=== PATIENT | male | born 1945 | race Caucasian/White ===

== ENCOUNTER 2017-10-13 22:38 | Inpatient (IN) | payer MEDICARE, OTHER ==
[2017-10-13] MEDS ORDERED: NS 0.9% 1000 ML* 2,000 ML IV ONE (22:58)
[2017-10-13] MEDS: Enoxaparin(*) 80 MG/0.8 ML SYR SUBCUT ONE (23:10)
--- NOTE | 2017-10-13 23:19 | ED ---
HPI Chest Pain - HPI Summary HPI Summary: This patient is a 72 year old M presenting to [facility] accompanied by his with a chief complaint of CP since 1330 today. PMHx exertional angina dx 2005; 2 90% lesions in the right side IDd by a heart catheterization. SHx 2x stents. That was the only other time of similar sx. Also identified was a 30% lesion of the left LND. He notes that 6 years ago he felt sx of burning central CP alleviated by rest. He endorses regular moderate exercise and is usually asymptomatic. Today, towards the end of usual activity, he notes he felt sx of lingering CP. He denies diaphoresis, pain radiation ,and N/V. He endorses the chest pain lasted 20 or 25 minutes, and intensely for 4. Took NTG and pain gone after 10 minutes. At 1830 pt had blood drawn and EKG, 0.15 troponin, slightly abnormal EKG. Pt denies any further sx. PMHx HLD. 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 PMHx kidney stones. He endorses that normally his creatinine is 1.2-1.5. Pt notes that 6 years ago he experienced gradually increasing residuals, so he has been catheterizing himself 2x a day. Catheterized at 2200, 500 ccs normal urine. - History of Current Complaint Chief Complaint: EDChestPainROMI Time Seen by Provider: 10/13/17 23:00 Hx Obtained From: Patient Onset/Duration: Started Hours Ago, Resolved Timing: Constant, Lasting Minutes Initial Severity: Moderate Current Severity: None Pain Intensity: 0 Pain Scale Used: 0-10 Numeric Chest Pain Location: Mid Sternal Chest Pain Radiates: No Character: Burning, Tightness Aggravating Factor(s): Exertion Alleviating Factor(s): NTG 123 Associated Signs and Symptoms: Positive: Chest Pain. Negative: Fever, Diaphoresis, Nausea, Vomiting Related History: Similar Episode/Dx as: - dx exertional angina - Allergy/Home Medications Allergies/Adverse Reactions: Allergies Allergy/AdvReac Type Severity Reaction Status Date / Time ciprofloxacin Allergy >3 days, Verified 09/02/17 12:45 tendon pain PMH/Surg Hx/FS Hx/Imm Hx Endocrine/Hematology History: Reports: Hx Anticoagulant Therapy - ASA, Hx Thyroid Disease - THYROIDITIS Denies: Hx Diabetes Cardiovascular History: Reports: Hx Angina - exertional, Hx Hypercholesterolemia Denies: Hx Hypertension, Hx Pacemaker/ICD Respiratory History: Denies: Hx Asthma, Hx Chronic Obstructive Pulmonary Disease (COPD) GI History: Denies: Other GI Disorders History: Reports: Hx Kidney Stones, Hx Renal Disease - NO LEFT KIDNEY Denies: Hx Dialysis Sensory History: Denies: Hx Legally Blind, Hx Deafness, Hx Hearing Aid Opthamlomology History: Denies: Hx Legally Blind EENT History: Denies: Hx Deafness Neurological History: Denies: Hx Dementia, Hx Seizures Psychiatric History: Denies: Hx Panic Disorder, Hx Substance Abuse - Surgical History Surgery Procedure, Year, and Place: LT NEPHECTOMY CHILD, STENT Infectious Disease History: No Infectious Disease History: Denies: Hx Hepatitis, Hx Human Immunodeficiency Virus (HIV), Traveled Outside the [place] in Last 30 Days - Family History Known Family History: Positive: Cardiac Disease - father, age 49, aortic stenosis mother, Other - brother prostate cancer - Social History Occupation: Retired Lives: With Family Alcohol Use: None Substance Use Type: Reports: None Smoking Status (MU): Never Smoked Tobacco Review of Systems Negative: Fever, Skin Diaphoresis Positive: Chest Pain. Negative: Other - pain radiation Negative: Vomiting, Nausea Positive: other - gradually increasing residuals, self-catheters 2x a day All Other Systems Reviewed And Are Negative: Yes Physical Exam - Summary Physical Exam Summary: Appearance: Well-appearing, Well-nourished, lying in bed comfortably Skin: Warm, dry, no obvious rash Eyes: sclera anicteric, no conjunctival pallor ENT: mucous membranes moist, pharynx appears normal Neck: Supple, non-tender Respiratory: Clear to auscultation, no signs of respiratory distress Cardiovascular: Normal S1, S2. No murmurs. Normal distal pulses in tibial and radial bilaterally. Abdomen: Soft, non-tender, normal active bowel sounds present Musculoskeletal: Normal, Strength/ROM Intact Neurological: A&Ox3, awake and alert, mentation is normal, speech is fluent and appropriate Psychiatric: affect is normal, does not appear anxious or depressed Triage Information Reviewed: Yes Vital Signs On Initial Exam: Initial Vitals Temp Pulse Resp BP Pulse Ox 99.5 F 67 17 157/84 98 10/13/17 22:48 10/13/17 22:48 10/13/17 22:48 10/13/17 22:48 10/13/17 22:48 Vital Signs Reviewed: Yes Diagnostics - Vital Signs Vital Signs Temp Pulse Resp BP Pulse Ox 10/13/17 22:50 67 21 98 10/13/17 22:48 99.5 F 68 19 157/84 99 - Laboratory Result Diagrams: 10/13/17 23:36 10/13/17 23:36 Lab Statement: Any lab studies that have been ordered have been reviewed, and results considered in the medical decision making process. - EKG 2244 Cardiac Rate: NL - 65 EKG Rhythm: Sinus Rhythm ST Segment: Normal Ectopy: None EKG Comparison: No Significant Change - nl EKG Chest Pain Course/Dx - Diagnoses Provider Diagnoses: Unstable angina - Provider Notifications Discussed Care Of Patient With: Diamond Loco Instructed by Provider To: Will See In ED Discharge - Sign-Out/Discharge Documenting (check all that apply): Patient Departure - admit - Discharge Plan Condition: Stable Disposition: ADMITTED TO [facility] - Billing Disposition and Condition Condition: STABLE Disposition: Admitted to [facility] - Attestation Statements Document Initiated by Scribe: Yes Documenting Scribe: Alfred Waldrop Provider For Whom Anton is Documenting (Include Credential): Dr. Hunter Caraballo MD Scribe Attestation: Alfred Mckinney scribed for Dr. Hunter Caraballo MD on 10/14/17 at 0150. Scribe Documentation Reviewed: Yes Provider Attestation: The documentation as recorded by the Alfred munoz accurately reflects the service I personally performed and the decisions made by me, Dr. Hunter Caraballo MD
[2017-10-13] MEDS ORDERED: Ondansetron INJ* 2 MG/ML VIAL IV PRN (23:28)
[2017-10-13] MEDS ORDERED: Acetaminophen TAB* 325 MG PO PRN (23:28)
[2017-10-13] MEDS ORDERED: Al Hydrox/Mg Hydrox/Simet LIQ* 30 ML UDC PO PRN (23:28)
[2017-10-13] MEDS ORDERED: Levothyroxine TAB* 50 MCG TAB PO SCH (23:45)
[2017-10-14] LABS: ABS Basophils 0 10^3/ul (0-0.2); ABS Eosinophils 0.1 10^3/ul (0-0.6); ABS Lymphocytes 1.2 10^3/ul (1.0-4.8); ABS Monocytes 0.4 10^3/ul (0-0.8); ABS Nucleated RBC 0 10^3/ul; Hematocrit 37 % (42-52); Lymphocyte % 26.2 % (25-47); Mean Corpuscular HGB Conc 35 g/dl (31-36); Mean Corpuscular Hemoglobin 31 pg (27-31); Mean Corpuscular Volume 89 fL (80-94); Mean Platelet Volume 7.7 um3 (7.4-10.4); Nucleated Red Blood Cells % 0.1; Platelet Count 119 10^3/ul (150-450); Red Blood Count 4.19 10^6/ul (4.00-5.40); Red Cell Distribution Width 13 % (10.5-15); White Blood Count 4.7 10^3/ul (3.5-10.8)
[2017-10-14 00:07] LABS: EGFR Non-African American 55.9 (>60)
[2017-10-14] MEDS: Enoxaparin(*) 80 MG/0.8 ML SYR SUBCUT ONE ×2 (00:09→00:12)
[2017-10-14] MEDS: NS 0.9% 1000 ML* 1,000 ML IV SCH ×2 (00:28→11:17)
--- NOTE | 2017-10-14 02:37 | HP ---
CC: Shahriar Rivera MD * HISTORY AND PHYSICAL: DATE OF ADMISSION: 10/13/17 TIME OF EVALUATION: 2300. PRIMARY CARE PHYSICIAN: Shahriar Rivera MD CHIEF COMPLAINT: Chest pain. HISTORY OF PRESENT ILLNESS: This is a 72-year-old male with a past medical history of CAD and stable angina who presented to the emergency room with persistent chest pain. 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 No other intervention. He states that this afternoon after having intercourse, his angina started and it lasted for about 20 minutes which is much longer than it has ever lasted in the past. He found some old nitro spray and took 2 sprays and it eventually subsided. He told his , Sana, who is also an database modeler and she did an EKG which looks relatively stable. He really wanted to go to a [facility] where he was doing a presentation, so he went there and then they checked her troponin which was 0.15. They called the machine maintenance servicer who recommended him going to the emergency room for further evaluation. The patient is currently chest pain free. When he had his chest pain earlier, it was nonradiating. He had no associated shortness of breath, nausea, diaphoresis. He has had a URI with no fever, no shortness of breath over the past week and no cough that has persisted. He states his last stress test was in 2012 that showed a small old inferior HI. He states that he is relatively active doing the 7-minute workout. He mowed the lawn. He walked several miles without any symptoms. He just had his annual physical last week with no issues. He has lost 5 pounds, but he contributes it to being retired. He has chronic ankle swelling. No recent changes in his medications. Otherwise, review of systems is negative. In the emergency room, the patient had labs, imaging, and was referred to the hospitalist service for further evaluation. PAST MEDICAL HISTORY: 1. History of coronary artery disease status post PCI of the right coronary artery, drug-eluting stents x2 in 2004 at [facility]. He is followed by Dr. Ford here. 2. History of stable angina. 3. History of nephrolithiasis status post lithotripsy followed by Dr. Manley. 4. History of a lacunar TIA in 2004. 5. Gilbert syndrome. 6. History of 2 adenomas found on colonoscopy in 2012. 7. History of right basal cell carcinoma of the right neck status post excision. 8. BPH. 9. History of subacute thyroiditis. 10. History of neurogenic bladder, self-cath b.i.d. 11. History of congenital double kidney status post nephrectomy. 12. Constipation. 13. Hyperlipidemia. MEDICATIONS: 1. Proscar 5 mg p.o. daily. 2. Lipitor 20 mg daily. 3. Aspirin 81 mg p.o. b.i.d. 4. MiraLAX half a cap p.o. b.i.d. 5. Synthroid 50 mcg every other day, 75 mcg every other day. ALLERGIES: CIPROFLOXACIN, tendon pain. 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 He lives with his , Sana, who is still a practising database modeler. No history of smoking, alcohol, or illicit drug use. He has been for 41 years. His is his healthcare proxy. He is full code. He has also grown children. REVIEW OF SYSTEMS: A 14-point review of systems as mentioned in the HPI, otherwise negative. In addition, the patient does have issues with constipation and low back pain. FAMILY HISTORY: Father had an HI at age 49, at age 71, also had a coronary artery bypass graft. His mother at age 87 coronary artery disease. His sister is alive, just recently had a CABG and aortic valve replacement at age 68. His other brother and 2 sisters are alive and healthy. PHYSICAL EXAMINATION GENERAL: In no acute distress. Resting comfortably, with his at the bedside. VITAL SIGNS: T-max 98.5, pulse rate 61, respiratory rate 19, oxygen saturation 99% on room air, and blood pressure 139/77. HEENT: Head: Normocephalic. Pupils are equal and reactive. Anicteric. Oropharynx: Mucous membranes are moist. NECK: Supple. No lymphadenopathy. RESPIRATORY: Clear to auscultation. No wheezes, rhonchi or rales. CARDIAC: Regular rate and rhythm. Soft systolic murmur, most pronounced at the left sternal base. No carotid bruits. ABDOMEN: Soft, nontender, nondistended. EXTREMITIES: No clubbing, cyanosis or edema. +2 DPs. NEUROLOGICAL: Alert and oriented x3. No gross focal neurologic deficits. LABORATORY DATA: Still pending. RADIOGRAPHIC DATA: EKG shows ST changes when compared to his EKG from earlier this afternoon taken by Dr. Sana Duff in leads V2 and V1. Chest x-ray wet read unremarkable. 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 1. Chest pain. Assessment: The patient meets criteria for unstable angina versus a non-ST elevated myocardial infarction. He is currently chest pain free. He does have some nonspecific ST changes. Cardiology has been notified. Plan: We will follow up on his blood work depending on his renal function whether to put him on Lovenox or heparin drip. We will keep him n.p.o. after midnight with IV fluids. He is hesitant to take a beta-bryan. He is concerned that it will drop his pulse and his blood pressure and get more fluids. We will start him on a low dose metoprolol 12.5 mg at 9 a.m. in the morning with parameters set. Continue him on aspirin 81 mg p.o. b.i.d. Continue atorvastatin 20 mg daily. We will check a lipid panel in the morning. We will trend his troponins as well. Follow up on his pending troponin and follow up with Cardiology's recommendations. CHRONIC MEDICAL PROBLEMS: 1. BPH and neurogenic bladder. Continue his Proscar 5 mg p.o. daily. We will order a bladder scan q.8 hours and have us notify if greater than 700. The patient to self-cath b.i.d. and as needed. 2. Hypothyroidism. Continue his Synthroid 50 and 75 mcg alternating. 3. Constipation. Continue with MiraLAX. 4. FEN. The patient will be n.p.o. after midnight with gentle IV fluids. 5. DVT prophylaxis: The patient will be anticoagulated. The score is moderate risk. 6. Code status: Full code. TIME SPENT: Greater than 60 minutes were spent doing the history and physical, greater than half time was spent in direct patient contact. [id number]/[facility] #: [id number] [facility]
--- NOTE | 2017-10-14 05:45 | PN ---
Progress Note - Progress Note Date of Service: 10/14/17 Note: Initial plan was to start metoprolol 12.5 mg this am however HR has been in low 50's overnight. Will discontinue it.
[2017-10-14] MEDS ORDERED: Levothyroxine TAB* 50 MCG TAB PO SCH (06:00)
[2017-10-14 07:17] LABS: INR 1.01 (0.77-1.02)
[2017-10-14 07:23] LABS: EGFR Non-African American 57.5 (>60)
--- NOTE | 2017-10-14 07:37 | RAD ---
INDICATION: Angina COMPARISON: None. TECHNIQUE: Single AP portable view of the chest was obtained. FINDINGS: Image quality is compromised due to the relative inferiority of a portable chest x-ray. The heart and mediastinum exhibit normal size and contour. Overlying the right upper lung and the peripheral aspect of the right lower lung are tiny densities not seen on the contralateral side. Otherwise the lungs are grossly clear. There is no evidence of a large pleural effusion. Visualized bones are normal for the patient's age. IMPRESSION: Scattered punctate densities in the right upper and lower lateral lung are nonspecific but could be small infiltrates, for example atypical pneumonia.
--- NOTE | 2017-10-14 07:47 | PN ---
Subjective - Subjective Reason for Note: Progress Note History: I reviewed Keegan Beasley's presentation with the patient, with Sana Beasley yesterday evening and with Dr. Diamond Loco's admitting history and physical. I saw him as an outpatient for a physical examination 10/08/2017. He has a history of CAD with chronic stable angina. He has a history of a prior RCA stent. He developed chest pain following exertion and he had a subtle change in V2 of his EKG and an increase of his troponin I to 0.15. The chest pain didn 't recur - he went to a picnic after the episode. He has been pain-free overnight - only 2 hours of sleep. He had 1,000 mls on self catherization - likely due to drinking water+++. This morning he is feeling well. He has a slightly hoarse voice from a URI. He has had no light- headedness, chest pain/pressure, dyspnea or palpitations. Active Problems: Active Problems Elevated troponin I level (Acute) R74.8 URI (upper respiratory infection) (Acute) J06.9 Unstable angina pectoris due to coronary arteriosclerosis (Acute) I25.110 History of TIA (transient ischemic attack) (Chronic) Z86.73 Hypercholesterolemia (Chronic) E78.00 Nephrolithiasis (Chronic) N20.0 Neurogenic bladder (Chronic) N31.9 Self-catheterizes urinary bladder (Chronic) Z78.9 Stage 2 chronic kidney disease (Chronic) N18.2 Current Medications: Current Medications Acetaminophen (Tylenol Tab*) 650 mg PO Q4H PRN PRN Reason: FEVER/PAIN Al Hydrox/Mg Hydrox/Simethicone (Maalox Plus*) 30 ml PO Q6H PRN PRN Reason: INDIGESTION Aspirin (Aspirin 81 Mg Chew Tab*) 81 mg PO BID STEPHANY Atorvastatin Calcium (Lipitor*) 20 mg PO 2100 STEPHANY Enoxaparin Sodium (Lovenox(*)) 75 mg SUBCUT Q12H STEPHANY Finasteride (Proscar Tab*) 5 mg PO DAILY [facility] Sodium Chloride (Ns 0.9% 1000 Ml*) 1,000 mls @ 100 mls/hr IV PER RATE STEPHANY Last Admin: 10/14/17 00:28 Dose: 100 mls/hr Levothyroxine Sodium (Synthroid Tab*) 50 mcg PO Q48H STEPHANY Last Admin: 10/14/17 05:24 Dose: 50 mcg Levothyroxine Sodium (Synthroid Tab*) 75 mcg PO Q48H [facility] Ondansetron HCl (Zofran Inj*) 4 mg IV Q4H PRN PRN Reason: NAUSEA/VOMITING Polyethylene Glycol/Electrolytes (Miralax*) 8.5 gm PO BID [facility] Home Medications: Home Medications Medication Instructions Recorded Confirmed Type Aspirin 81 mg CHEW TAB* 81 mg PO BID 07/16/12 10/13/17 History Atorvastatin* [Lipitor 20 MG*] 20 mg PO 2100 07/16/12 10/13/17 History Finasteride TAB* [Proscar TAB*] 5 mg PO DAILY 09/02/17 10/13/17 History Levothyroxine Sodium [Synthroid] 67 mcg PO .ALT 1-1.5TABS DAILY 09/02/17 History Polyethylene Glycol 3350* 17 gm PO DAILY 09/02/17 10/13/17 History [Miralax*] Allergies: Allergies Allergy/AdvReac Type Severity Reaction Status Date / Time ciprofloxacin Allergy >3 days, Verified 09/02/17 12:45 tendon pain Objective - Vital Signs Vital Signs: Vital Signs 10/13/17 10/13/17 10/13/17 22:48 22:50 23:00 Temperature 99.5 F Pulse Rate 68 67 62 Respiratory 19 21 15 Rate Blood Pressure 157/84 (mmHg) O2 Sat by Pulse 99 98 98 Oximetry 10/13/17 10/13/17 10/13/17 23:18 23:48 23:55 Temperature 99 F Pulse Rate 61 62 60 Respiratory 19 16 16 Rate Blood Pressure 139/77 157/88 148/81 (mmHg) O2 Sat by Pulse 99 100 98 Oximetry 10/14/17 10/14/17 10/14/17 00:00 00:01 00:16 Temperature 99 F Pulse Rate 62 60 60 Respiratory 19 12 12 Rate Blood Pressure 148/81 148/81 (mmHg) O2 Sat by Pulse 98 98 98 Oximetry 10/14/17 10/14/17 00:20 03:02 Temperature 98.2 F 97.8 F Pulse Rate 60 59 Respiratory 16 16 Rate Blood Pressure 145/72 135/73 (mmHg) O2 Sat by Pulse 99 99 Oximetry - Intake and Output Intake and Output: Intake & Output 08/10/12/17 10/13/17 10/14/17 11:59 11:59 11:59 11:59 Intake Total 547 Output Total 1100 Balance -553 Weight 164 lb 9.6 oz Intake: IV Fluids 547 NS (0.9%) 547 Oral 0 Output: Urine 1100 Other: Estimated Void Large ADLs: Meal Record Start: 10/13/17 23: 55 Freq: DAILY@0900,1400,1800 Status: Active Protocol: Created 10/13/17 23:55 System (Rec: 10/13/17 23:55 System [email or web address]) Intake and Output Start: 10/13/17 22: 48 Freq: Status: Active Protocol: Created 10/13/17 22:48 System (Rec: 10/13/17 22:48 System [id number]) Intake and Output Start: 10/13/17 23: 55 Freq: DAILY@0600,1400,2200 Status: Active Protocol: Created 10/13/17 23:55 System (Rec: 10/13/17 23:55 System [email or web address]) Document 10/14/17 06:00 [id number] (Rec: 10/14/17 06:18 [id number] [email or web address]) - Physical Exam General: No Cyanosis, No Anemia, No Jaundice, No Clubbing Lungs and Chest: Yes: Chest Expansion Full, Chest Expansion Symetrica, Percussion Note Resonant, Vessicular Breath Sounds. No: Crackles, Wheezes Heart Rate and Rhythm: Regular JVP: Not Elevated Additional Cardiovascular: Yes: Normal Heart Sounds, Carotid Bruits, Present Pedal Pulse. No: Heart Murmur, Pedal Edema Abdominal Exam: Yes: Soft, Bowel Sounds Present. No: Distention, Abdominal Mass , Abdominal Tenderness, Guarding, Rebound Tenderness - Extremities Cranial Nerves II-XII Intact: Yes Limbs: Normal Power, Normal Tone - Neuro Orientation: A/O x3 Speech: Normal Results - Results Lab Results: Laboratory Results - last 24 hr 10/13/17 10/13/17 10/14/17 23:36 23:36 06:39 WBC 4.7 RBC 4.19 Hgb 13.0 L Hct 37 L MCV 89 MCH 31 MCHC 35 RDW 13 Plt Count 119 L MPV 7.7 Neut % (Auto) 62.2 Lymph % (Auto) 26.2 [place] % (Auto) 8.9 H Eos % (Auto) 2.0 Baso % (Auto) 0.7 Absolute Neuts (auto) 3.0 Absolute Lymphs (auto) 1.2 Absolute Monos (auto) 0.4 Absolute Eos (auto) 0.1 Absolute Basos (auto) 0 Absolute Nucleated RBC 0 Nucleated RBC % 0.1 INR (Anticoag Therapy) APTT Sodium 139 142 Potassium 4.0 3.7 Chloride 108 112 H Carbon Dioxide 26 26 Anion Gap 5 4 BUN 18 16 Creatinine 1.27 H 1.24 H Est GFR ( Amer) 67.6 69.5 Est GFR (Non-Af Amer) 55.9 57.5 BUN/Creatinine Ratio 14.2 12.9 Glucose 86 86 Calcium 8.6 8.5 L Magnesium 2.0 Total Bilirubin 1.10 H AST 48 H ALT 17 Alkaline Phosphatase 68 Troponin I 0.12 H* 0.09 H* Total Protein 5.7 L Albumin 3.6 Globulin 2.1 Albumin/Globulin Ratio 1.7 Triglycerides 80 Cholesterol 90 LDL Cholesterol 43 HDL Cholesterol 30.8 10/14/17 06:39 WBC RBC Hgb Hct MCV MCH MCHC RDW Plt Count MPV Neut % (Auto) Lymph % (Auto) [place] % (Auto) Eos % (Auto) Baso % (Auto) Absolute Neuts (auto) Absolute Lymphs (auto) Absolute Monos (auto) Absolute Eos (auto) Absolute Basos (auto) Absolute Nucleated RBC Nucleated RBC % INR (Anticoag Therapy) 1.01 APTT 47.5 H Sodium Potassium Chloride Carbon Dioxide Anion Gap BUN Creatinine Est GFR ( Amer) Est GFR (Non-Af Amer) BUN/Creatinine Ratio Glucose Calcium Magnesium Total Bilirubin AST ALT Alkaline Phosphatase Troponin I Total Protein Albumin Globulin Albumin/Globulin Ratio Triglycerides Cholesterol LDL Cholesterol HDL Cholesterol Radiology Results: Patient Name: KEEGAN BEASLEY Medical Record#: [id number] Ordering Physician: Hunter Caraballo MD Acct.#: [id number] : 1945 Age: 72 Sex: M Location: [address] [place] [address]/TELEMETRY Exam Date: 10/13/172258 ADM Status: ADM IN Order Information: CHEST AP PORTABLE Accession Number: [id number] CPT: 18931 INDICATION: Angina COMPARISON: None. TECHNIQUE: Single AP portable view of the chest was obtained. FINDINGS: Image quality is compromised due to the relative inferiority of a portable chest x-ray. The heart and mediastinum exhibit normal size and contour. Overlying the right upper lung and the peripheral aspect of the right lower lung are tiny densities not seen on the contralateral side. Otherwise the lungs are grossly clear. There is no evidence of a large pleural effusion. Visualized bones are normal for the patient's age. IMPRESSION: Scattered punctate densities in the right upper and lower lateral lung are nonspecific but could be small infiltrates, for example atypical pneumonia. <Electronically signed by Mansoor Pope MD in OV> 10/14/17733 Dictated By: Mansoor oPpe MD Dictated Date/Time: 10/14/17733 Transcribed Date/Time: 10/14/17730 Copy to: CC:Shahriar Rivera MD; Diamond Loco DO; Jina Louis MD; Hunter Caraballo MD Imaging - [facility] [place] [facility] [address] [address] ph ([phone]) ph ([phone]) ph ([phone]) This report is only to be considered final once signed by the Provider(s) as displayed in the "<Electronically Signed by >" field (s). Absence of a signature indicates the report is in a draft status and still needs to be finalized. In the event this document was created by someone other than the signing Provider, the individual initiating the document will be listed in the "Entered by:" or "Dictated by:" conrad. 1 of 1 Assessment - Problem List Assessment: Patient Problems Elevated troponin I level (Acute) URI (upper respiratory infection) (Acute) Unstable angina pectoris due to coronary arteriosclerosis (Acute) History of TIA (transient ischemic attack) (Chronic) Hypercholesterolemia (Chronic) Nephrolithiasis (Chronic) Neurogenic bladder (Chronic) Self-catheterizes urinary bladder (Chronic) Stage 2 chronic kidney disease (Chronic) Plan: Elevated troponin I level (Acute)/ Unstable angina pectoris due to coronary arteriosclerosis (Acute) He has had a mild troponin I rise following an episode of angina that followed sexual intercourse. The troponin I level was already coming down on the second assay. He has had no further symptoms. Dr. Arthur Ford is discussing with him whether he should have a stress test or a cardiac catheterization. He has a bradycardia and is avoiding beta blockers. URI: he has a hoarse voice. His chest is clear to auscultation. Dr. Pope is concerned about possible infiltrates - these are subtle. History of TIA (transient ischemic attack) (Chronic) Hypercholesterolemia (Chronic) continue current Rx Nephrolithiasis (Chronic) secondary diagnosis Neurogenic bladder (Chronic) /Self-catheterizes urinary bladder (Chronic) stable I discussed the above with the patient and he agrees with the management plan.
[2017-10-14] MEDS ORDERED: Metoprolol Tartrate TAB* 25 MG PO SCH ×2 (09:00)
--- NOTE | 2017-10-14 09:34 | CONS ---
CC: Dr. Shahriar Rivera* CARDIOLOGY CONSULTATION: DATE OF CONSULT: 10/14/17 INDICATION FOR CONSULTATION: Unstable angina, coronary artery disease. HISTORY OF PRESENT ILLNESS: The patient is a 72-year-old gentleman with a history of known coronary artery disease, history of a stent to his right coronary artery in 2004. The patient has had stable angina for quite a few years. The patient states that if runs more than 2 blocks or hikes up steep mountain, he will get angina, when he backs off, angina will resolve. Yesterday , the patient had an episode of severe chest pain after exertion. He said during the exertion, he did not have any chest pain. When he ended he started having chest pain, it was a chest burning, which was different from his usual anginal symptoms, it lasted about 25 minutes and then resolved on its own. The patient had blood drawn about 6 hours after his event and had troponin level 0.12, his troponin level this morning was 0.09. The patient had no further chest pain overnight. The patient's EKG shows normal sinus rhythm with normal axis intervals. PAST MEDICAL HISTORY: Significant for coronary artery disease as described above, kidney stones, neurogenic bladder. OUTPATIENT MEDICATIONS: 1. Atorvastatin 20 mg a day. 2. Aspirin 81 mg a day. 3. Levothyroxine 67 mcg a day. 4. Finasteride 5 mg a day. 5. He is not on beta-blockers because of his underlying bradycardia. FAMILY HISTORY: Positive for coronary artery disease. 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 He is . He gets regular exercise. He denies tobacco or alcohol use. PHYSICAL EXAM: Height is 6 feet, weight is 164 pounds, temperature 97.7, heart rate is 53, blood pressure 136/67, oxygen saturation 99% on room air, respiratory rate is 20. Sclerae anicteric. Oropharynx is pink without erythema. Carotids are 2+ without bruits. JVD is normal. Thyroid is normal. Cardiac Exam: S1, S2 without any murmurs, rubs, or gallops. Lungs are clear to auscultation. There is no dullness to percussion. Abdomen is soft, nontender, nondistended with normoactive bowel sounds. Extremities show no edema. He has 2+ pulses throughout. The patient is awake, alert, and oriented. He moves all 4 extremities equally. DIAGNOSTIC STUDIES/LAB DATA: Laboratory studies, CBC within normal limits. Chemistries within normal limits. BUN 16, creatinine 1.2, troponin level as described above. AST and ALT are normal. Total cholesterol 90, LDL cholesterol of 43. IMPRESSION: This is a 72-year-old gentleman with a history of known coronary artery disease, who came to the hospital because of an episode severe burning chest pain after exertion. He does have a minimally elevated troponin level consistent with unstable angina. The patient is already on appropriate medications. For now, my recommendation is the patient undergo cardiac catheterization. The risks and benefits of this described in detail. The patient has agreed to proceed. Further recommendations pending the results of his catheterization. [id number]/[facility] #: [id number] GAIL
[2017-10-14] MEDS: Aspirin 81 mg CHEW TAB* 81 MG TAB.CHEW PO SCH ×3 (11:17→20:48)
[2017-10-14] MEDS: Finasteride TAB* 5 MG PO SCH (11:18)
[2017-10-14] MEDS: Polyethylene Glycol 3350* 17 GM PACKET PO SCH ×2 (11:18→20:48)
[2017-10-14] MEDS: Enoxaparin(*) 80 MG/0.8 ML SYR SUBCUT SCH (12:30)
[2017-10-14] MEDS ORDERED: Heparin(*) 1000 UNIT/ML 10 ML VIAL CATH LAB IV ONE (14:11)
[2017-10-14] MEDS ORDERED: Heparin 2 UNITS/ML IVPREMIX* 1,000 ML IV ONE ×2 (14:11→15:43)
[2017-10-14] MEDS ORDERED: nitroGLYCERIN DRIP* 25,000 MCG/250 ML BTL ONE (14:12)
[2017-10-14] MEDS ORDERED: VERAPAMIL 2.5 MG/ML 2 ML VIAL ** 5 mg/2 ml ONE (14:12)
[2017-10-14] MEDS ORDERED: Iodixanol* (CONTRAST) 320 MG/ML 100 ML SDV ONE ×3 (14:12→16:02)
[2017-10-14] MEDS ORDERED: Lidocaine 1% INJ* 10 MG/ML 30 ML SDV ONE (14:16)
[2017-10-14] MEDS ORDERED: Midazolam* 1 MG/ML 10 ML VIAL (10 MG) ONE (15:20)
[2017-10-14] MEDS ORDERED: Nitroglycerin TAB 0.4 MG* 0.4 MG TAB ONE (15:44)
[2017-10-14] MEDS ORDERED: NS 0.9% 1000 ML* 1,000 ML IV SCH (16:30)
[2017-10-14] MEDS ORDERED: Atorvastatin* 20 MG TAB PO SCH (21:00)
[2017-10-15] MEDS: Enoxaparin(*) 80 MG/0.8 ML SYR SUBCUT SCH ×2 (00:50→11:52)
[2017-10-15] MEDS: NS 0.9% 1000 ML* 1,000 ML IV SCH (03:13)
--- NOTE | 2017-10-15 03:33 | CATH ---
CC: Dr. Shahriar Rivera; Dr. Farhat Romero, [place], [place], Cardiothoracic Surgery Department * CARDIAC CATHETERIZATION: DATE OF PROCEDURE: 10/14/17 - ROOM #453 PROCEDURE: Cardiac catheterization including coronary angiography. INDICATION: Coronary artery disease, unstable angina. The patient is a 72-year-old gentleman with a history of coronary artery disease, history of stent placed to his right coronary artery back in 2004. At that time, he had a 30% stenosis to his LAD. The patient has been on maximal medical therapy since then. The patient had a recent episode of prolonged chest pain and an elevated troponin level to 0.15. Cardiac catheterization was recommended. DESCRIPTION OF PROCEDURE: The patient was brought to the catheterization lab in a fasting state. Informed consent had been obtained prior to the procedure. All labs were reviewed. The patient was placed supine on the catheterization table. His radial artery was prepped and draped in the usual fashion. 1% lidocaine was used for local anesthesia. The radial artery was entered by a Seldinger technique and a guidewire was placed, over the guidewire a 6-Ghanaian hydrophilic sheath was placed. After that an infusion of heparin, verapamil and nitroglycerin was done through the sheath itself. The patient underwent coronary angiography using a 6- Ghanaian TIG catheter, 6-Ghanaian AR-2 catheter and a 6-Ghanaian Voda 3.5 guide catheter. At the end of the procedure, all the sheaths and catheters were removed. The patient tolerated the procedure well, no complications. A total of 140 cc of Visipaque dye was used and a total of 9.3 minutes of fluoro time was used. FINDINGS: 1. Right coronary artery: The RCA was normal in size. It was a dominant vessel, it gave off the PDA. The stent at the proximal and mid portion of the right coronary artery was opened and patent. There was no evidence of restenosis. The remainder of the right coronary artery was without disease. On the last injection of the right coronary artery, a bubble was infused and travelled down the PDA and dissolved. 2. Left main. The left main was normal in size. It bifurcated into the LAD and circumflex. There was no evidence of stenosis. 3. Left anterior descending: The LAD was normal in size. It gave off a large diagonal vessel without evidence of disease. After the first diagonal, there was eccentric 90% stenosis with a large aneurysm that included the D2 vessel. The D2 vessel was a small 1 mm vessel with a proximal 75% stenosis. After the large aneurysm of the mid LAD, there was no evidence of stenosis. The D3 vessel of the LAD had an ostial 40% stenosis. 4. The left circumflex artery gave off 1 obtuse marginal branch. There was no evidence of stenosis. IMPRESSION: 1. 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 There was moderate calcification of the vessel. 2. Stent to the proximal right coronary artery was open and patent. 3. Successful radial artery catheterization. RECOMMENDATIONS: Because of the complexity of his LAD, the patient will be referred for single vessel bypass to his LAD. [id number]/[facility] #: [id number] GAIL
[2017-10-15] MEDS ORDERED: Levothyroxine TAB* 75 MCG TAB PO SCH (06:00)
[2017-10-15 07:30] LABS: ABS Basophils 0.1 10^3/ul (0-0.2); ABS Eosinophils 0.2 10^3/ul (0-0.6); ABS Lymphocytes 1.2 10^3/ul (1.0-4.8); ABS Monocytes 0.5 10^3/ul (0-0.8); ABS Neutrophils 3.8 10^3/ul (1.5-7.7); ABS Nucleated RBC 0 10^3/ul; Eosinophil % 3.7 % (0-6); Hematocrit 38 % (42-52); Hemoglobin 13.5 g/dl (14.0-18.0); Lymphocyte % 20.9 % (25-47); Mean Corpuscular HGB Conc 36 g/dl (31-36); Mean Corpuscular Hemoglobin 32 pg (27-31); Mean Corpuscular Volume 89 fL (80-94); Mean Platelet Volume 7.3 um3 (7.4-10.4); Nucleated Red Blood Cells % 0; Platelet Count 109 10^3/ul (150-450); Red Blood Count 4.25 10^6/ul (4.00-5.40); Red Cell Distribution Width 13 % (10.5-15); White Blood Count 5.8 10^3/ul (3.5-10.8)
[2017-10-15 07:48] LABS: EGFR Non-African American 67.4 (>60)
--- NOTE | 2017-10-15 08:41 | ECHO ---
Patient: KEEGAN BEASLEY Rec#: [id number] : 1945 Date: 10/15/2017 Age: 72y Height: 182.88 cm / 72.0 in Weight: 65.77 kg / 145.0 lbs Sex: M BSA: 1.86 Room#: 453 Admit Date#: 10/13/2017 Type: Inpatient Referring: Arthur Ford MD Reading: Arthur Ford MD Manufacturing Automation Engineer: Amber VegaMATT CC: Shahriar Rivera MD Transthoracic Echocardiogram Indication: Chest pain, abnormal EKG, CAD BP: 115/61 HR: 48 Rhythm: Bradycardia Findings History: CAD, s/p PCI, s/p left nephrectomy, HLD, murmur. Technical Comments: The study quality is good. Completed at 0815. Left Ventricle: The left ventricular chamber size is normal. Mild concentric left ventricular hypertrophy is observed. Global left ventricular wall motion and contractility are within normal limits. There is normal left ventricular systolic function. The estimated ejection fraction is 55-60%. There is no consistent Doppler evidence of clinically significant diastolic dysfunction. Left Atrium: The left atrial chamber size is normal. Right Ventricle: Moderator Band present. The right ventricular cavity size is normal. The right ventricular global systolic function is low normal. Right Atrium: The right atrial cavity size is normal. Aortic Valve: The aortic valve is trileaflet. There is moderate thickening of the right coronary cusp. There is moderate thickening of the non coronary cusp. There is a trace of aortic regurgitation. There is no evidence of aortic stenosis. Mitral Valve: There is mitral annular calcification. The mitral valve leaflets are mildly thickened. There is a trace of mitral regurgitation. There is no evidence of mitral stenosis. Tricuspid Valve: The tricuspid valve leaflets are normal. There is mild tricuspid regurgitation. The right ventricular systolic pressure is estimated at 24 mmHg. No pulmonary hypertension is noted. There is no tricuspid stenosis. Pulmonic Valve: The pulmonic valve structure is not well visualized. There is a trace pulmonic regurgitation. There is no pulmonic stenosis. Pericardium: There is no significant pericardial effusion. Aorta: There is moderate dilatation of the ascending aorta.4.6 cm There is no dilatation of the aortic arch. There is mild dilatation of the aortic root. Pulmonary Artery: The main pulmonary artery is not well visualized. Venous: The inferior vena cava appears normal in size. There is a greater than 50% respiratory change in the inferior vena cava dimension. Conclusions Mild concentric left ventricular hypertrophy is observed. Global left ventricular wall motion and contractility are within normal limits. There is normal left ventricular systolic function. The estimated ejection fraction is 55-60%. There is moderate thickening of the non coronary cusp. There is a trace of aortic regurgitation. There is a trace of mitral regurgitation. There is mild tricuspid regurgitation. No pulmonary hypertension is noted. There is no significant pericardial effusion. There is moderate dilatation of the ascending aorta.4.6 cm Measurements Name Value Normal Range RVIDd (AP) 2D 3.3 cm (0.9 - 2.6) RVDdMajor (2D) 4 cm (2.2 - 4.4) RAd ISD 4CH 4.9 cm (3.4 - 4.9) RA (A4C)W 4 cm (2.9 - 4.6) IVSd (2D) 1.1 cm (0.6 - 1) LVPWd (2D) 1.1 cm (0.6 - 1) LVIDd (2D) 5 cm (3.6 - 5.4) LVIDs (2D) 3.3 cm - LV FS (2D) 33 % (25 - 45) Aortic Annulus 2.1 cm (1.4 - 2.6) Ao root diameter (2D) 3.6 cm (2.1 - 3.5) Ascending Ao 4.6 cm (2.1 - 3.4) Aortic arch 2.7 cm (1.8 - 3.4) LA dimension (AP) 2D 3.3 cm (2.3 - 3.8) LAd ISD 4CH 4.3 cm (2.9 - 5.3) LA ISD 4CH W 4.2 cm (2.5 - 4.5) Name Value Normal Range LA ESV SP 4CH (A/L) 45 ml - LA ESV SP 2CH (A/L) 35 ml - LA ESV BP (A/L) 40 ml - LA ESV BP (A/L) index 22 ml/m2 - LA ESV SP 4CH (MOD) 40 ml - LA ESV SP 2CH (MOD) 31 ml - Name Value Normal Range MV E-wave Vmax 0.86 m/sec - MV deceleration time 180 msec - MV A-wave Vmax 0.52 m/sec - MV E:A ratio 1.65 ratio - LV septal e' Vmax 0.07 m/sec - LV lateral e' Vmax 0.1 m/sec - LV E:e' septal ratio 12.28 ratio - LV E:e' lateral ratio 8.6 ratio - Name Value Normal Range AV Vmax 1.1 m/sec - AV VTI 25.5 cm - AV peak gradient 4.76 mmHg - AV mean gradient 2.62 mmHg - LVOT diameter 2.1 cm - LVOT Vmax 0.83 m/sec - LVOT VTI 21.45 cm - LVOT peak gradient 2.76 mmHg - LVOT mean gradient 1.56 mmHg - ANA Vmax 0.71 m/sec - Name Value Normal Range TR Vmax 2.3 m/sec - TR peak gradient 21 mmHg - RAP 3 mmHg - RVSP 24 mmHg - IVC diameter 1.6 cm - Name Value Normal Range PV Vmax 0.81 m/sec - PV peak gradient 2.64 mmHg -
--- NOTE | 2017-10-15 08:44 | PN ---
Subjective - Subjective Reason for Note: Progress Note History: Internal Medicine: I reviewed the results of the cardiac catheterization from Dr. Ford's note. Keegan Beasley has had a bump in his troponin I overnight - he had 20 mins of angina during the catheterization. He has been pain free overnight. He is feeling well this morning. He has some white sputum - he has URI. Active Problems: Active Problems Elevated troponin I level (Acute) R74.8 Stenosis of left anterior descending (LAD) artery (Acute) I25.10 URI (upper respiratory infection) (Acute) J06.9 Unstable angina pectoris due to coronary arteriosclerosis (Acute) I25.110 History of TIA (transient ischemic attack) (Chronic) Z86.73 Hypercholesterolemia (Chronic) E78.00 Nephrolithiasis (Chronic) N20.0 Neurogenic bladder (Chronic) N31.9 Self-catheterizes urinary bladder (Chronic) Z78.9 Stage 2 chronic kidney disease (Chronic) N18.2 Current Medications: Current Medications Acetaminophen (Tylenol Tab*) 650 mg PO Q4H PRN PRN Reason: FEVER/PAIN Al Hydrox/Mg Hydrox/Simethicone (Maalox Plus*) 30 ml PO Q6H PRN PRN Reason: INDIGESTION Aspirin (Aspirin 81 Mg Chew Tab*) 81 mg PO BID COUNT INCLUDES THE [facility] Last Admin: 10/14/17 20:48 Dose: 81 mg Atorvastatin Calcium (Lipitor*) 20 mg PO 2100 COUNT INCLUDES THE [facility] Last Admin: 10/14/17 20:48 Dose: 20 mg Enoxaparin Sodium (Lovenox(*)) 75 mg SUBCUT Q12H COUNT INCLUDES THE [facility] Last Admin: 10/15/17 00:50 Dose: Not Given Finasteride (Proscar Tab*) 5 mg PO DAILY COUNT INCLUDES THE [facility] Last Admin: 10/14/17 11:18 Dose: Not Given Sodium Chloride (Ns 0.9% 1000 Ml*) 1,000 mls @ 100 mls/hr IV PER RATE COUNT INCLUDES THE [facility] Last Admin: 10/15/17 03:13 Dose: 100 mls/hr Levothyroxine Sodium (Synthroid Tab*) 50 mcg PO Q48H COUNT INCLUDES THE [facility] Last Admin: 10/14/17 05:24 Dose: 50 mcg Levothyroxine Sodium (Synthroid Tab*) 75 mcg PO Q48H COUNT INCLUDES THE [facility] Last Admin: 10/15/17 04:28 Dose: 75 mcg Ondansetron HCl (Zofran Inj*) 4 mg IV Q4H PRN PRN Reason: NAUSEA/VOMITING Polyethylene Glycol/Electrolytes (Miralax*) 8.5 gm PO BID STEPHANY Last Admin: 10/14/17 20:48 Dose: 8.5 gm Home Medications: Home Medications Medication Instructions Recorded Confirmed Type Aspirin 81 mg CHEW TAB* 81 mg PO BID 07/16/12 10/13/17 History Atorvastatin* [Lipitor 20 MG*] 20 mg PO 2100 07/16/12 10/13/17 History Finasteride TAB* [Proscar TAB*] 5 mg PO DAILY 09/02/17 10/13/17 History Levothyroxine Sodium [Synthroid] 67 mcg PO .ALT 1-1.5TABS DAILY 09/02/17 History Polyethylene Glycol 3350* 17 gm PO DAILY 09/02/17 10/13/17 History [Miralax*] Allergies: Allergies Allergy/AdvReac Type Severity Reaction Status Date / Time ciprofloxacin Allergy >3 days, Verified 09/02/17 12:45 tendon pain Objective - Vital Signs Vital Signs: Vital Signs 10/14/17 10/14/17 10/14/17 11:53 16:17 16:19 Temperature 97.7 F Pulse Rate 49 48 45 Respiratory 14 11 Rate Blood Pressure 120/64 153/74 (mmHg) O2 Sat by Pulse 100 100 100 Oximetry 10/14/17 10/14/17 10/14/17 16:34 16:49 17:00 Temperature Pulse Rate 49 48 48 Respiratory 19 15 15 Rate Blood Pressure 156/77 149/85 (mmHg) O2 Sat by Pulse 99 99 99 Oximetry 10/14/17 10/14/17 10/14/17 17:04 17:19 18:04 Temperature Pulse Rate 48 48 Respiratory 16 18 Rate Blood Pressure 142/70 142/75 150/59 (mmHg) O2 Sat by Pulse 98 98 Oximetry 10/14/17 10/14/17 10/14/17 18:23 18:26 19:08 Temperature 98.0 F 98.0 F Pulse Rate 51 51 Respiratory 20 Rate Blood Pressure 150/59 117/48 (mmHg) O2 Sat by Pulse 100 100 Oximetry 10/14/17 10/14/17 10/14/17 20:03 20:53 20:58 Temperature Pulse Rate Respiratory 16 Rate Blood Pressure 106/53 131/69 (mmHg) O2 Sat by Pulse Oximetry 10/14/17 10/14/17 10/15/17 21:03 23:26 04:07 Temperature 98.6 F 98.1 F Pulse Rate 47 50 Respiratory 20 16 Rate Blood Pressure 127/57 122/66 115/61 (mmHg) O2 Sat by Pulse 100 99 Oximetry 10/15/17 07:36 Temperature Pulse Rate Respiratory 16 Rate Blood Pressure (mmHg) O2 Sat by Pulse Oximetry - Intake and Output Intake and Output: Intake & Output 10/12/17 10/13/17 10/14/17 10/15/17 11:59 11:59 11:59 11:59 Intake Total 547 2094 Output Total 1100 2900 Balance -553 -806 Weight 164 lb 9.6 oz Intake: IV Fluids 547 2003 NS (0.9%) 547 2003 Oral 0 90 Output: Urine 1100 1850 Straight Cath 1050 Other: Estimated Void Large ADLs: Meal Record Start: 10/13/17 23: 55 Freq: DAILY@0900,1400,1800 Status: Active Protocol: Created 10/13/17 23:55 System (Rec: 10/13/17 23:55 System [email or web address]) Document 10/14/17 12:41 [id number] (Rec: 10/14/17 12:42 [id number] [email or web address]) Document 10/14/17 15:15 [id number] (Rec: 10/14/17 15:16 [id number] [email or web address]) Document 10/14/17 20:03 [id number] (Rec: 10/14/17 20:04 [id number] TELE-C01) Intake and Output Start: 10/13/17 22: 48 Freq: Status: Active Protocol: Created 10/13/17 22:48 System (Rec: 10/13/17 22:48 System [id number]) Intake and Output Start: 10/13/17 23: 55 Freq: DAILY@0600,1400,2200 Status: Active Protocol: Created 10/13/17 23:55 System (Rec: 10/13/17 23:55 System [email or web address]) Document 10/14/17 06:00 [id number] (Rec: 10/14/17 06:18 [id number] TELE-C10) Document 10/14/17 22:04 [id number] (Rec: 10/14/17 22:05 [id number] TELE-C01) Document 10/15/17 05:55 [id number] (Rec: 10/15/17 05:57 [id number] TELE-C13) Results - Results Lab Results: Laboratory Results - last 24 hr 10/13/17 10/14/17 10/14/17 23:36 06:39 15:57 WBC 4.7 RBC 4.19 Hgb 13.0 L Hct 37 L MCV 89 MCH 31 MCHC 35 RDW 13 Plt Count 119 L MPV 7.7 Neut % (Auto) 62.2 Lymph % (Auto) 26.2 [place] % (Auto) 8.9 H Eos % (Auto) 2.0 Baso % (Auto) 0.7 Absolute Neuts (auto) 3.0 Absolute Lymphs (auto) 1.2 Absolute Monos (auto) 0.4 Absolute Eos (auto) 0.1 Absolute Basos (auto) 0 Absolute Nucleated RBC 0 Nucleated RBC % 0.1 ESR 6 POC Activ Clotting Time 188 Sodium 142 Potassium 3.7 Chloride 112 H Carbon Dioxide 26 Anion Gap 4 BUN 16 Creatinine 1.24 H Est GFR ( Amer) 69.5 Est GFR (Non-Af Amer) 57.5 BUN/Creatinine Ratio 12.9 Glucose 86 Calcium 8.5 L Troponin I 0.09 H* C-Reactive Protein 1.98 Triglycerides 80 Cholesterol 90 LDL Cholesterol 43 HDL Cholesterol 30.8 10/15/17 10/15/17 07:16 07:16 WBC 5.8 RBC 4.25 Hgb 13.5 L Hct 38 L MCV 89 MCH 32 H MCHC 36 RDW 13 Plt Count 109 L MPV 7.3 L Neut % (Auto) 65.9 Lymph % (Auto) 20.9 L [place] % (Auto) 8.4 H Eos % (Auto) 3.7 Baso % (Auto) 1.1 Absolute Neuts (auto) 3.8 Absolute Lymphs (auto) 1.2 Absolute Monos (auto) 0.5 Absolute Eos (auto) 0.2 Absolute Basos (auto) 0.1 Absolute Nucleated RBC 0 Nucleated RBC % 0 ESR POC Activ Clotting Time Sodium 141 Potassium 4.0 Chloride 110 Carbon Dioxide 26 Anion Gap 5 BUN 13 Creatinine 1.08 Est GFR ( Amer) 81.6 Est GFR (Non-Af Amer) 67.4 BUN/Creatinine Ratio 12.0 Glucose 82 Calcium 8.8 Troponin I 0.19 H* C-Reactive Protein Triglycerides Cholesterol LDL Cholesterol HDL Cholesterol Other Results/Reports: Cardiac Catheterization Report KEEGAN BEASLEY [id number] 10/13/17 1. 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 There was moderate calcification of the vessel. 2. Stent to the proximal right coronary artery was open and patent. 3. Successful radial artery catheterization. RECOMMENDATIONS: Because of the complexity of his LAD, the patient will be referred for single vessel bypass to his LAD. [id number]/[facility] #: [id number] <Electronically signed by Arthur Ford MD> 10/15/17 0809 Arthur Ford MD Dictated Date/Time: 10/14/17 1741 Transcribed Date/Time 10/15/17 0040 Copy to: CC: Shahriar Rivera MD; OCDY SCOTT MD; Arthur Ford MD Assessment - Problem List Assessment: Patient Problems Elevated troponin I level (Acute) Stenosis of left anterior descending (LAD) artery (Acute) URI (upper respiratory infection) (Acute) Unstable angina pectoris due to coronary arteriosclerosis (Acute) History of TIA (transient ischemic attack) (Chronic) Hypercholesterolemia (Chronic) Nephrolithiasis (Chronic) Neurogenic bladder (Chronic) Self-catheterizes urinary bladder (Chronic) Stage 2 chronic kidney disease (Chronic) Plan: Elevated troponin I level (Acute) Stenosis of left anterior descending (LAD) artery (Acute) Unstable angina pectoris due to coronary arteriosclerosis (Acute ) I discussed the results of the cardiac catheterization with Keegan and Sana Beasley. I suggested he consider going to [facility] for evaluation for a stent through the 90% stenosis and the distal aneurysm, and if that is not possible for the robotic minimally invasive CABG. They will discuss this with Dr. Ford - bed availability may determine the actual plan. He will remain on the fractionated heparin and with rest until he has a procedure. He is medically fit for transfer by ambulance to tertiary care center URI (upper respiratory infection) (Acute) This is improving Self-catheterizes urinary bladder (Chronic) Stage 2 chronic kidney disease ( Chronic) Stable
[2017-10-15] MEDS: Aspirin 81 mg CHEW TAB* 81 MG TAB.CHEW PO SCH (09:36)
[2017-10-15] MEDS: Finasteride TAB* 5 MG PO SCH (09:37)
[2017-10-15] MEDS: Polyethylene Glycol 3350* 17 GM PACKET PO SCH (09:39)
[2017-10-15 11:20] VITALS: BP 120/63
--- NOTE | 2017-10-15 13:31 | TRS ---
CC: Dr. Shahriar Rivera; Dr. Farhat Romero, [facility], [place], [place] * DATE OF ADMISSION: 10/13/2017. DATE OF TRANSFER: 10/15/2017. TODAY'S DATE: 10/15/2017. INDICATION FOR TRANSFER: Coronary artery disease, acute coronary syndrome. HISTORY OF PRESENT ILLNESS/HOSPITAL COURSE: The patient is a 72-year-old gentleman with a history of coronary artery disease and history of stenting to his right coronary artery in 2004. The patient was admitted to the hospital with an episode of chest pain. Please see Dr. Loco's admission history and physical and my consultation for details of his presentation. The patient came to the hospital because of a prolonged episode of chest pain. His initial troponin level was 0.12, his second troponin was 0.09. The patient was pain free overnight. The following morning, there was a discussion with the patient and his primary care physician. The decision was that the patient would undergo cardiac catheterization. Catheterization showed a critical stenosis to his mid LAD with a large aneurysm. His stent to his right coronary was open and patent. After having the films reviewed by Dr. Villalta and by Dr. Mario valenzuela at [facility]. A decision was to do a single-vessel bypass to his LAD. The patient is being transferred to [facility] in [place] under the care of Dr. Farhat Romero for consideration of minimally evasive LOWERY to the LAD. DISCHARGE MEDICATIONS: 1. Aspirin 81 mg a day. 2. Lipitor 20 mg a day. 3. Finasteride 5 mg a day. 4. Levothyroxine 50 mcg a day. ALLERGIES: CIPROFLOXACIN. PHYSICAL EXAMINATION: Vital Signs: Height 6 feet, weight 164 pounds. Temperature 98.2, heart rate 50, blood pressure 120/63, respiratory rate 20, oxygen saturation 100 percent on room air. Neck: Carotids 2+ without bruits. JV is normal. Thyroid is normal. Cardiac: S1, S2 without any murmurs, rubs, or gallops. Lungs: Clear to auscultation. Abdomen: Soft, nontender, nondistended with normoactive bowel sounds. Extremities: No edema. He has 2+ pulses throughout. Neuro: The patient is awake, alert, and oriented. He moves all four extremities equally. His cath site is stable. LABORATORY DATA/DIAGNOSTIC STUDIES: White count 5.8, hemoglobin 13, hematocrit 38, platelet count 109. Chemistry is within normal limits. BUN 13, creatinine 1.08. Troponin this morning 0.19. AST and ALT are normal. Total cholesterol 90 , LDL cholesterol 43. The patient's echocardiogram today demonstrated a normal LV size and systolic function. No focal wall motion abnormalities. No valvular abnormalities. IMPRESSION: A 72-year-old gentleman who was admitted to the hospital with an acute coronary syndrome. He does have a history of coronary artery disease. His cardiac catheterization showed a critical stenosis to his LAD with a large aneurysm. The patient will be transferred to [facility] in [place] for consideration of bypass with LOWERY to his LAD. FOLLOW-UP: Follow-up will be with myself and Dr. Rivera when he returns from [place]. [id number]/[facility] #: [id number] GAIL
== END 2017-10-15 14:00 | disposition short-term general hospital (02) | DRG 287 ==
LOC: ED 22:38 → MEDTELE 23:28
PROVIDERS: ADMIT Pediatrics; ATTEND Specialist
PROC: B2111ZZ Fluoroscopy of Multiple Coronary Arteries using Low Osmolar Contrast (ICD-10-PCS; principal; 2017-10-14 13:30)
DX: I25.110 Atherosclerotic heart disease of native coronary artery with unstable angina pectoris (principal); E78.5 Hyperlipidemia, unspecified; E80.4 Gilbert syndrome; N40.0 Benign prostatic hyperplasia without lower urinary tract symptoms; N31.9 Neuromuscular dysfunction of bladder, unspecified; E03.9 Hypothyroidism, unspecified; Z80.42 Family history of malignant neoplasm of prostate; K59.00 Constipation, unspecified; I25.41 Coronary artery aneurysm; N18.2 Chronic kidney disease, stage 2 (mild); Z90.5 Acquired absence of kidney; Z87.442 Personal history of urinary calculi; Z88.1 Allergy status to other antibiotic agents; Z85.038 Personal history of other malignant neoplasm of large intestine; Z85.828 Personal history of other malignant neoplasm of skin; Z80.3 Family history of malignant neoplasm of breast; Z82.49 Family history of ischemic heart disease and other diseases of the circulatory system; Z95.5 Presence of coronary angioplasty implant and graft; Z86.73 Personal history of transient ischemic attack (TIA), and cerebral infarction without residual deficits; Z79.82 Long term (current) use of aspirin
CPT/HCPCS: 36415; 71045; 80048; 80053; 80061; 83735; 84484; 85025; 85347; 85610; 85652; 85730; 86140; 93005; 93306; 93454; 99284; A9270-GY; C1887; J1644; J1650; J2250